=== PATIENT | female | born 1960 | race Caucasian/White ===

== ENCOUNTER → 2016-08-10 | Outpatient (CLI) | payer BC ==
--- NOTE | 2016-08-10 13:42 | Diagnostic Imaging Report ---
Bilateral screening mammogram The current study was also evaluated with a Computer Aided Detection (CAD) system. INDICATION: Screening. No current complaints stated on the questionnaire. COMPARISON: 06/15/15. FINDINGS: The breasts are composed of scattered fibroglandular densities. No mass, architectural distortion or suspicious cluster of calcifications seen. Allowing for technique and positional differences, no suspicious change is seen. IMPRESSION: No significant change. ACR BI-RADS Category 2: Benign findings. Result letter will be mailed to the patient. Note: At least 10% of breast cancer is not imaged by mammography. Dictated by: Dictated on workstation # [id number]
== END ==
LOC: RAD 10:00
PROVIDERS: ATTEND Family Medicine
DX: Z12.31 Encounter for screening mammogram for malignant neoplasm of breast (principal)
CPT/HCPCS: 77067

== ENCOUNTER → 2017-08-30 | Outpatient (CLI) | payer BC ==
--- NOTE | 2017-08-31 18:52 | Diagnostic Imaging Report ---
INDICATION: Digital mammogram bilateral screening with tomosynthesis. This study was compared to the prior exams of 08/10/16, 06/15/15 and 06/12/14. At this time, there are no current complaints. The current study was also evaluated with a Computer Aided Detection (CAD) system. FINDINGS: There are scattered fibroglandular densities in both breasts which could obscure a lesion. Overall, there does not appear to have been any significant change when compared to the prior exam. No primary or secondary sign of malignancy is noted. 3D tomographic images fail to show any sign of malignancy. IMPRESSION: There is no radiographic evidence for malignancy. ACR BI-RADS Category 1: Negative. Result letter will be mailed to the patient. Note: At least 10% of breast cancer is not imaged by mammography. Dictated by: Dictated on workstation # [id number]
== END ==
LOC: RAD 09:54
PROVIDERS: ATTEND Family Medicine
DX: Z12.13 Encounter for screening for malignant neoplasm of small intestine (principal)
CPT/HCPCS: 77067

== ENCOUNTER 2017-10-09 05:39 | Outpatient (CLI) | payer BC ==
[~2017-10-09] VITALS: Ht 160 cm; Wt 106.6 kg
[2017-10-09] MEDS ORDERED: METO-387 PO (14:09)
[2017-10-09] MEDS ORDERED: LORA10TA7 PO (14:09)
[2017-10-09] MEDS ORDERED: TELM1TAB28 PO (14:09)
[2017-10-09] MEDS ORDERED: PHEN37.53 PO (14:09)
== END 2017-10-09 14:10 ==
LOC: PREOP 05:39
PROVIDERS: ATTEND Surgery
DX: Z01.818 Encounter for other preprocedural examination (principal); Z12.11 Encounter for screening for malignant neoplasm of colon

== ENCOUNTER 2017-10-16 07:28 | Day surgery (SDC) | payer BC ==
[~2017-10-16] VITALS: Ht 160 cm; Wt 106.6 kg
[~2017-10-16 07:28] MED LIST: LORA10TA7 PO; METO-387 PO; PHEN37.53 PO; TELM1TAB28 PO
[2017-10-16] MEDS ORDERED: NS IV 500 ML 500 ML ONE (07:45)
[2017-10-16] MEDS ORDERED: NS IV 500 ML 500 ML IV PRN (07:58)
[2017-10-16 08:11] VITALS: BP 140/89
[2017-10-16] MEDS ORDERED: fentaNYL INJECTION 100 MCG/2 ML AMP ONE (08:18)
[2017-10-16] MEDS ORDERED: MIDAZOLAM 2 MG/2 ML (VERSED) VIAL ONE ×4 (08:18)
--- NOTE | 2017-10-16 08:20 | Conscious Sedation/ASA ---
Conscious Sedation Pre-Proced Time Reviewed: 08:20 ASA Class: 2 Airway Mallampati Classification: (cahto appropriate class) I. II. III, IV Lungs Heart ASA score ASA 1: a normal healthy patient ASA 2: a patient with a mild systemic disease (mid diabetes, controlled hypertension, obesity ASA 3: a patient with a severe systemic disease that limits activity (angina , COPD, prior Myocardial infarction) ASA 4: a patient with an incapacitating disease that is a constant threat to life (CHF, renal failure) ASA 5: a moribund patient not expected to survive 24 hrs. (ruptured aneurysm) ASA 6: a declared brain patient whose organs are being harvested. For emergent operations, add the letter E after the classification Grade 2 Sedation Plan: Discussed options with patient/fam Note The patient is an appropriate candidate to undergo the planned procedure, sedation, and anesthesia. The patient immediately re-assessed prior to indication. TANIA LUDWIG MD Oct 16, 2017 8:20 am
--- NOTE | 2017-10-16 08:20 | History & Physicial ---
History of Present Illness History of Present Illness Reason for visit/HPI To undergo screening colonoscopy. No family history of colon cancer Date of Admission 10/16/17 Date Seen by Provider: Oct 16, 2017 Time Seen by Provider: 08:18 I consulted on this patient on 10/16/17 08:17 Attending Physician Tania Ludwig MD Admitting Physician Renato Spann MD Consult Allergies and Home Medications Allergies Coded Allergies: iodine (Verified Allergy, Unknown, HIVES, 10/09/17) Home Medications Loratadine 10 Mg Tablet, 10 MG PO DAILY, (Reported) Metoprolol Succinate 25 Mg Tab.er.24h, 25 MG PO DAILY, (Reported) Phentermine HCl 37.5 Mg Tablet, 37.5 MG PO DAILY, (Reported) Telmisartan/Hydrochlorothiazid 1 Each Tablet, 1 EACH PO DAILY, (Reported) Patient Home Medication List Home Medication List Reviewed: Yes Past Dagqcpv-Zvekel-Heghlt Hx Patient Social History Marrital Status: Employed/Student: employed Alcohol Use: Denies Use Recreational Drug Use: No Smoking Status: Never a Smoker Recent Foreign Travel: No Contact w/other who traveled: No Recent Hopitalizations: No Recent Infectious Disease Expo: No Immunizations Up To Date Tetanus Booster (TDap): Unknown Seasonal Allergies Seasonal Allergies: Yes Surgeries Yes Respiratory No Currently Using CPAP: No Currently Using BIPAP: No Cardiovascular Yes Hypertension Reproductive System Hx Reproductive Disorders: No Sexually Transmitted Disease: No HIV/AIDS: No 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 Genitourinary No Gastrointestinal No Musculoskeletal Yes Arthritis Endocrine History of Endocrine Disorders: Yes Endocrine Disorders: Hypothyroidsim HEENT Loss of Vision: Denies Hearing Impairment: Denies Cancer Skin Psychosocial History of Psychiatric Problem: No Constitutional: no symptoms reported EENTM: no symptoms reported Respiratory: no symptoms reported Cardiovascular: no symptoms reported Gastrointestinal: no symptoms reported Genitourinary: no symptoms reported Musculoskeletal: joint pain Skin: no symptoms reported Psychiatric/Neurological: No Symptoms Reported Physical Exam Vital Signs Vital Signs - First Documented 10/16/17 08:11 Temp 100.1 Pulse 100 Resp 18 B/P (MAP) 140/89 (106) Pulse Ox 96 O2 Delivery Room Air Capillary Refill : Height, Weight, BMI Height: 5'3.00" Weight: 235lbs. 0.0oz. [id number]; 41.6 BMI Method: General Appearance: No Apparent Distress Neck: Normal Inspection Respiratory: Lungs Clear Cardiovascular: Regular Rate, Rhythm Gastrointestinal: Non Tender, Soft Rectal: Deferred Extremity: Normal Inspection Neurologic/Psychiatric: Alert, Oriented x3 Skin: Warm/Dry Assessment/Plan Assessment and Plan Lady to undergo screening colonoscopy. Polyps, post polypectomy bleeding, Lovenox and some iatrogenic perforation etc. discussed. Admission Diagnosis Admission Status: Other (Outpt Proc) TANIA LUDWIG MD Oct 16, 2017 8:20 am
[2017-10-16] MEDS: MIDAZOLAM 2 MG/2 ML (VERSED) VIAL IVP PRN ×3 (08:24→08:30)
[2017-10-16] MEDS: fentaNYL INJECTION 100 MCG/2 ML AMP IVP PRN ×2 (08:25→08:28)
--- NOTE | 2017-10-16 08:46 | Endo Procedure Record ---
Endo Procedure Report Date of Procedure Last Colonoscopy: No Oct 16, 2017 Surgeon (s) TANIA LUDWIG MD Post Procedure/Op Diagnosis Very few diverticulae Procedure Performed Colonoscopy to cecum Description of Procedure Anesthesia Type: Conscious Sedation Specimen(s) collected/removed None Description of the Procedure Indication for procedure: This lady came in for screening colonoscopy. She denied any family history of colon cancer. Informed consent was obtained after reviewing the procedure in detail. Description of procedure: She was placed in left lateral decubitus position and her vital signs were monitored. Conscious sedation was achieved using Versed and fentanyl. Digital rectal examination was unremarkable. The colonoscope was then introduced in the rectum and advanced all the left cecum. The quality of bowel preparation was excellent. The scope was then withdrawn slowly and the mucosa examined in a systematic fashion. Findings: Very few sigmoid diverticulae. She tolerated the procedure well and was taken to the nursing area in a stable condition. Impression: Screening colonoscopy. No polyps. No family history. Recommend repeating in 10 years. Copy Copies To 1: MARTHA ZAVALETA MD, XAVIER M MD Oct 16, 2017 8:46 am
--- NOTE | 2017-10-16 08:48 | Discharge Inst-Simple/Standard ---
Discharge Inst-Standard Discharge Medications New, Converted or Re-Newed RX: Other Patient Instructions/Follow Up Plan of Care/Instructions/FU: Repeat colonoscopy in 10 years Activity as Tolerated: Yes Discharge Diet: No Restrictions TANIA LUDWIG MD Oct 16, 2017 8:48 am
[2017-10-16 09:00] VITALS: BP_SYST 122; BP_SYST 140; BP_DIAS 58; BP_DIAS 89
[2017-10-16 09:27] VITALS: BP 121/74
[2017-10-16 09:31] VITALS: BP 121/74
== END 2017-10-16 09:31 | disposition home or self-care (01) ==
LOC: ENDO 07:28
PROVIDERS: ATTEND Surgery
DX: Z12.11 Encounter for screening for malignant neoplasm of colon (principal); I10 Essential (primary) hypertension; E03.9 Hypothyroidism, unspecified; Z79.899 Other long term (current) drug therapy

== ENCOUNTER → 2020-01-22 | Outpatient (CLI) | payer BC ==
[~2020-01-22] MED LIST changes: -METO-387 PO; +MTP25TSR PO
--- NOTE | 2020-01-22 09:27 | Diagnostic Imaging Report ---
INDICATION: Routine screening. COMPARISON: 08/30/2017 and 08/10/2016. TECHNIQUE: 2D and 3D bilateral screening mammography was performed with CAD. FINDINGS: Scattered fibroglandular densities are identified bilaterally. Nodular densities noted in both breasts appear stable. No dominant mass or malignant appearing microcalcifications are identified. The axillae are unremarkable. IMPRESSION: No mammographic features suspicious for malignancy are identified. ACR BI-RADS Category 2: Benign findings. Result letter will be mailed to the patient. Note: At least 10% of breast cancer is not imaged by mammography. Dictated by: Dictated on workstation # [id number]
== END ==
LOC: RAD 08:00
PROVIDERS: ATTEND Family Medicine
DX: Z12.31 Encounter for screening mammogram for malignant neoplasm of breast (principal)
CPT/HCPCS: 77063; 77067

== ENCOUNTER → 2021-10-01 | Outpatient (CLI) | payer BC ==
[~2021-10-01] MED LIST changes: -PHEN37.53 PO; +PHEN37.58 PO; -TELM1TAB28 PO; +TELM1TAB37 PO
--- NOTE | 2021-10-01 11:18 | Diagnostic Imaging Report ---
INDICATION: Routine screening. Comparison is made with prior mammogram 01/14/2020 and 08/30/2017. 2-D and 3-D bilateral screening mammography was performed with CAD. Scattered fibroglandular densities are identified bilaterally. The parenchymal pattern is stable. No mass or malignant-appearing microcalcifications are seen. Axillae are unremarkable. IMPRESSION: No mammographic features suspicious for malignancy are identified. ACR BI-RADS Category 1: Negative. Result letter will be mailed to the patient. Note: At least 10% of breast cancer is not imaged by mammography. BI-RADS Category 1 Dictated by: Dictated on workstation # [id number]
== END ==
LOC: RAD 08:02
PROVIDERS: ATTEND Family Medicine
DX: Z12.31 Encounter for screening mammogram for malignant neoplasm of breast (principal)
CPT/HCPCS: 77063; 77067

== ENCOUNTER 2022-09-06 05:36 | Outpatient (CLI) | payer BC ==
[~2022-09-06] VITALS: Ht 157.5 cm; Wt 86.4 kg
[2022-09-06] MEDS ORDERED: GABA300S3 PO (12:17)
[2022-09-06] MEDS ORDERED: METF-397 PO (12:17)
== END 2022-09-06 12:29 | disposition home or self-care (01) ==
LOC: PREOP 05:36
PROVIDERS: ATTEND Specialist
DX: Z01.818 Encounter for other preprocedural examination (principal)

== ENCOUNTER → 2022-09-09 | Day surgery (SDC) | payer BC ==
[~2022-09-09] VITALS: Ht 157.5 cm; Wt 86.4 kg
[~2022-09-09] MED LIST changes: +GABA300S3 PO; +METF-397 PO; +PHENYLEPHRINE 10% OPHTH (NEO-SYN) 5 ML BTL OU PRN; +TROPICAMIDE 1% OPH SOLN (MYDRIACYL) 15 ML BTL OU PRN
[2022-09-09 09:00] VITALS: BP 158/89
[2022-09-09] MEDS: TETRACAINE 0.5% OPHTH SOLN 4 ML BTL (SINGLE DOSE ONLY) OU PRN ×2 (09:13→09:14)
--- NOTE | 2022-09-09 09:57 | Ophthalmologist Pre-Op Note ---
Pre-Operative Progress Note H&P Reviewed The H&P was reviewed, patient examined and no changes noted. Date H&P Reviewed: Sep 09, 2022 Time H&P Reviewed: 09:35 Pre-Op Dx Secondary Cataract, Bilateral Eyes PEGGY MEDINA MD Sep 09, 2022 09:57
--- NOTE | 2022-09-09 09:58 | Ophthalmology Operative Report ---
YAG Capsulotomy PREOPERATIVE DIAGNOSIS: Secondary Cataract Bilateral POSTOPERATIVE DIAGNOSIS: Secondary Cataract Bilateral PROCEDURE: YAG Capsulotomy, Bilateral SURGEON: Tam Medina ANESTHESIA: Topical anesthesia COMPLICATIONS: None ESTIMATED BLOOD LOSS: Minimal DESCRIPTION OF PROCEDURE: After proper informed consent was obtained, the patient's, a 62 female , received one drop of Tropicamide and one drop of Tetracaine in each eye. The patient was then placed at the YAG laser and using a power of [ 4.5] millijoules and bursts [ 19] right eye and [22 ] left eye were used to fashion a central capsulotomy. The patient tolerated the procedure well without complications. TAM MEDINA MD Sep 09, 2022 09:58
== END | disposition home or self-care (01) ==
LOC: SDC 08:50
PROVIDERS: ATTEND Specialist
DX: E11.36 Type 2 diabetes mellitus with diabetic cataract (principal); H26.40 Unspecified secondary cataract; Z79.84 Long term (current) use of oral hypoglycemic drugs

== ENCOUNTER 2023-02-06 19:22 | Emergency (ER) | payer OTHER, BC ==
[~2023-02-06] VITALS: Ht 157.4 cm; Wt 86.4 kg
[~2023-02-06 19:22] MED LIST changes: -PHENYLEPHRINE 10% OPHTH (NEO-SYN) 5 ML BTL OU PRN; -TROPICAMIDE 1% OPH SOLN (MYDRIACYL) 15 ML BTL OU PRN
[2023-02-06] MEDS ORDERED: KETOROLAC INJ 30 MG/ML VIAL IM STA (19:49)
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
[2023-02-06] MEDS ORDERED: Tetanus/Diphtheria/Pertussis (Acell) ADULT Vaccine 0.5 ML IM ONE (20:00)
[2023-02-06 20:22] VITALS: BP 150/70
== END 2023-02-06 20:22 | disposition home or self-care (01) ==
LOC: ER FS 19:22 → EDUNIT# 19:22 → ER FS 20:22
DX: S50.12XA Contusion of left forearm, initial encounter (principal); S50.11XA Contusion of right forearm, initial encounter; Z23 Encounter for immunization; V89.2XXA Person injured in unspecified motor-vehicle accident, traffic, initial encounter; W22.11XA Striking against or struck by driver side automobile airbag, initial encounter; Y92.410 Unspecified street and highway as the place of occurrence of the external cause
CPT/HCPCS: 90471; 90715; 96372; 99284